=== PATIENT | male | born 1975 | race Hispanic/Latino ===

== ENCOUNTER 2017-02-25 10:46 | Day surgery (SDC) | payer MEDICAID, OTHER ==
[2017-02-25] MEDS ORDERED: HEPARIN SUB-Q NR (11:45)
[2017-02-25] MEDS ORDERED: LEVAQUIN 500MG/100ML 500 MG/100 ML BAG IV NR (12:00)
--- NOTE | 2017-02-25 12:08 | Anesthesia Consultation ---
Anesthesia Consult and Med Hx Date of service: 02/25/17 - Airway Anesthetic Teeth Evaluation: Poor (multiple missing teeth) ROM Head & Neck: Adequate Mental/Hyoid Distance: Adequate Mallampati Class: Class III Intubation Access Assessment: Possibly Difficult - Pulmonary Exam CTA: Yes - Cardiac Exam Cardiac Exam: RRR - Pre-Operative Health Status ASA Pre-Surgery Classification: ASA3 Proposed Anesthetic Plan: General - Pulmonary Hx Smoking: Yes (1/2-1 PACK A DAY FOR 30YEARS) COPD: Yes (inhaler every 4-5 hrs) Hx Sleep Apnea: Yes - Cardiovascular System Hx Hypertension: Yes (01/2017) Hx Heart Attack/AMI: No - Central Nervous System Hx Neuromuscular Disorder: Yes Hx Seizures: No CVA: No Hx Psychiatric Problems: No - Endocrine Hx Renal Disease: No Hx Non-Insulin Dependent Diabetes: No - Other Systems Hx Alcohol Use: No Hx Substance Use: No Hx Cancer: No Hx Obesity: Yes - Additional Comments Anesthesia Medical History Comments: NAC
[2017-02-25] MEDS ORDERED: NACL 0.9% 1000 ML 1,000 ML ONE (12:09)
--- NOTE | 2017-02-25 12:09 | Anesthesia Day of Surgery ---
Anesthesia Day of Surgery - Day of Surgery Patient Examined: Yes Patient H&P Reviewed: Yes Patient is NPO: Yes
[2017-02-25] MEDS ORDERED: PROVENTIL IH ONE (12:10)
[2017-02-25] MEDS ORDERED: MARCAINE 0.25% INFILTRATI ONE ×3 (12:11→13:47)
[2017-02-25] MEDS ORDERED: PROVENTIL IH NR (12:15)
[2017-02-25] MEDS ORDERED: DIPRIVAN 10 MG/ML IV ONE ×2 (12:26→13:35)
[2017-02-25] MEDS ORDERED: SUBLIMAZE ONE (12:26)
[2017-02-25] MEDS ORDERED: ZEMURON IV ONE (12:31)
[2017-02-25] MEDS ORDERED: XYLOCAINE MPF 2% ONE (12:32)
[2017-02-25] MEDS ORDERED: VERSED IV NR (13:00)
[2017-02-25] MEDS ORDERED: PEPCID IV NR (13:00)
[2017-02-25] MEDS ORDERED: NACL 0.9% 1000 ML 1,000 ML IV SCH (13:00)
[2017-02-25] MEDS ORDERED: ePHEDrine SULFATE ONE (13:02)
[2017-02-25] MEDS ORDERED: NEO SYNEPHRINE/NS Syringe(OR USE) IV ONE (13:04)
[2017-02-25] MEDS ORDERED: ROBINUL ONE ×2 (13:05→13:56)
[2017-02-25] MEDS ORDERED: DILAUDID ONE ×2 (13:07→14:43)
[2017-02-25] MEDS ORDERED: NEO SYNEPHRINE ONE (13:19)
[2017-02-25] MEDS ORDERED: LOPRESSOR IV ONE ×2 (13:39)
[2017-02-25] MEDS ORDERED: NACL 0.9% IR ONE ×2 (13:47)
[2017-02-25] MEDS ORDERED: NEOSTIGMINE ONE (13:56)
[2017-02-25] MEDS ORDERED: APRESOLINE ONE (13:56)
[2017-02-25] MEDS ORDERED: PERCOCET 5/325 PO PRN (14:55)
--- NOTE | 2017-02-25 15:00 | Post Operative Note ---
Pre-op diagnosis: 1) Chronic cholecystitis 2) Incarcerated ventral hernia Post-op diagnosis: same Findings: 1) Omental adhesions to gallbladder 2) Incarcerated omentum Procedure: 1) Laparoscopic cholecystectomy 2) Open repair of incarcerated ventral hernia Anesthesia: ANALY Surgeon: KEMAR JAIN Estimated blood loss: minimal Pathology: list (Gallbladder and gallstones) Specimen disposition: to lab Condition: stable Disposition: PACU
[2017-02-25] MEDS ORDERED: DILAUDID IV PRN ×2 (15:28→15:30)
[2017-02-25 16:59] VITALS: BP 122/66
--- NOTE | 2017-02-26 09:06 | Procedure Note ---
Date of procedure: 02/25/17 Pre-op diagnosis: 1) Chronic cholecystitis 2) Incarcerated ventral hernia Post-op diagnosis: same Procedure: Description of procedure: Pt was placed supine on the OR table. GETA was administered. Abdomen was prepped and draped. Proposed trocar incisions were infiltrated with 10 ml of 1% Lidocaine. A small periumbilical incision. The hernia sac was immediately identified and this was dissected away from the umbilical dermis down to its fascial margins. The sac was entered and was found to contain incarcerated omentum. The omentum was reduced back into the peritoneal cavity. The hernia sac was excised at the level of the fascia. A blunt 10 mm port was inserted into the peritoneal cavity and pneumoperitoneum established. 10 mm subxiphoid, 5 mm right upper quadrant and 5 mm right lateral abdominal Surgiports were then inserted into the peritoneal cavity under direct vision without incident. Patient was placed in a reverse Trendelenburg position with his right side rotated upward. The fundus of the gallbladder was grasped and was retracted cephalad and laterally. This revealed multiple omental adhesions on the gallbladder which were carefully taken down with blunt and electrocautery dissection. The fibroadipose tissue over the neck of the gallbladder was dissected and the critical view of safety obtained. The cystic duct was milked toward the gallbladder. The cystic artery and duct were then doubly clipped and divided. The gallbladder was dissected away from its hepatic fossa using electrocautery. The gallbladder was then placed in an Endobag and the Endobag and removed via the periumbilical fascial defect. The blunt 10 mm periumbilical port was replaced and pneumoperitoneum reestablished. Irrigation fluid used during the procedure was aspirated from the subhepatic space and Morison's pouch. Upper abdominal ports were removed with no bleeding identified from the port entry sites under low pressure. The blunt 10 mm periumbilical port was removed. The periumbilical fascial defect was closed with 3 interrupted sutures of 0-Ethibond. Skin incisions were closed with running subcuticular sutures of 4-0 Monocryl. Mastisol and Steri-Strips were applied across the incisions followed by 2 x 2's and Tegaderms. Patient tolerated the procedure well. He was extubated in the operating room and was taken to PACU in stable condition. Findings: 1) Omental adhesions to the gallbladder 2) Incarcerated omentum Anesthesia: ANALY Surgeon: KEMAR JAIN Estimated blood loss: minimal Pathology: list (gallbladder and gallstones) Specimen disposition: to lab Condition: stable Disposition: PACU (bleeding when he is currently)
--- NOTE | 2017-03-06 08:56 | History and Physical Report ---
History of Present Illness Date of examination: 02/25/17 History of present illness: 41 yo male with RUQ pain, nausea and vomiting since 12/2015. No h/o melena, hematochezia or hematemesis. Past History Past Medical History: hypertension Medications and Allergies Allergies Allergy/AdvReac Type Severity Reaction Status Date / Time Penicillins Allergy Hives Verified 02/20/17 16:50 tramadol Allergy BUSBY Verified 02/20/17 16:50 Home Medications Medication Instructions Recorded Confirmed Last Taken Type Lisinopril [Zestril TAB] 10 mg PO DAILY 02/20/17 02/25/17 02/25/17 10:00 History Review of Systems All systems: negative Exam Vital Signs Temp Pulse Resp BP Pulse Ox 97.8 F 67 16 135/80 95 02/25/17 11:10 02/25/17 11:10 02/25/17 11:10 02/25/17 11:10 02/25/17 11:10 - General physical appearance Positive: well developed, well nourished, no distress - Eyes Positive: PERRL, normal occular movement - ENT Positive: normal pinna, normal nares, normal mucosa, no hearing loss, no congestion - Neck Positive: no masses, no bruits, trachea midline, no venous distension - Respiratory Positive: normal expansion, normal respiratory effort, clear to auscultation - Cardiovascular Rhythm: regular Heart Sounds: Present: S1 & S2. Absent: rub, click - Extremities Extremities: no ischemia, pulses symmetrical, No edema - Breasts Breasts: deferred - Abdomen Abdomen: Present: soft, bowel sounds normal (There is a 2 cm incarcerated periumbilical hernia.) - Genitourinary Male Genitourinary: deferred - Integumentary no rash, no growths, no abnormal pigmentation - Neurologic Neurologic: alert and oriented to time, place and person, motor strength and sensation are grossly intact - Musculoskeletal normal gait, normal posture - Psychiatric Psychiatric: appropriate mood/affect, intact judgment & insight Results - Imaging Additional studies: CBC and CMP collected on 01/30/17 revealed a BS 118. RUQ US performed on 02/04/17 revealed cholelithiasis with a 4 mm CBD. Assessment and Plan - Patient Problems (1) Chronic cholecystitis Status: Acute Plan to address problem: 1) Lap homero 2) Prophylactic Ancef, IPC and SQ Heparin (2) Hypertension Status: Acute (3) Incarcerated ventral hernia Status: Acute Plan to address problem: 1) Open repair of hernia
== END 2017-02-25 16:45 | disposition home or self-care (01) ==
LOC: OR 10:46
PROVIDERS: ATTEND Surgery
DX: K81.1 Chronic cholecystitis (principal); K43.6 Other and unspecified ventral hernia with obstruction, without gangrene; K66.0 Peritoneal adhesions (postprocedural) (postinfection); J44.9 Chronic obstructive pulmonary disease, unspecified; I10 Essential (primary) hypertension; E66.9 Obesity, unspecified; F17.210 Nicotine dependence, cigarettes, uncomplicated; Z68.41 Body mass index [BMI] 40.0-44.9, adult; Z88.1 Allergy status to other antibiotic agents; Z88.6 Allergy status to analgesic agent
CPT/HCPCS: 47562; 49561; 49568; 88304; A4217; J0360; J1170; J1644; J1956; J2250; J2370; J2704; J2710; J3010; J7030